=== PATIENT | female | born 1985 | race Caucasian/White ===

== ENCOUNTER 2017-10-30 17:45 | Emergency (ER) | payer SELFPAY ==
--- NOTE | 2017-10-30 17:57 | PDOC ---
Rapid Medical Evaluation Time Seen by Provider: 10/30/17 17:54 Medical Evaluation: Allergies Allergy/AdvReac Type Severity Reaction Status Date / Time morphine Allergy Verified 10/30/17 17:54 10/30/17 17:55 The patient presents with a chief complaint of: [Generalized abdominal pain, vomiting, H/O PCOS. Currently has menses. ] I have performed a brief in-person evaluation of this patient. Pertinent physical exam findings: vss, [Generalized abdominal pain, Lungs clear , RRR. ] I have ordered the following: [CBC, CMP, lipase, UA, UCG, UC] The patient will proceed to the ED for further evaluation. Discharge Disposition - Diagnosis Abdominal pain - Referrals - Patient Instructions - Post Discharge Activity
[2017-10-30 17:58] VITALS: BP 125/99; PULSE 107; TEMP 98.9; BMI 36.0
[2017-10-30] MEDS ORDERED: PANTOPRAZOLE SODIUM 40 MG VIAL IVPUSH ONE (19:25)
[2017-10-30] MEDS ORDERED: SODIUM CHLORIDE 1,000 ML IV STA (19:25)
--- NOTE | 2017-10-30 19:25 | PDOC ---
History of Present Illness - General History Source: Patient - History of Present Illness Initial Comments: 10/30/17 20:02 The patient is a 32 year old female, with a significant past medical history of peptic ulcers, who presents to the emergency department with severe abdominal pain today with associated nausea. The patient reports her pain as diffuse, however, reports her epigastric region as the epicenter of pain. She reports the pain radiates through to the center of her middle back. She also reports nausea, but denies vomiting. She reports a prior allergy of morphine and states only dilaudid works. She also states this feels just like my peptic flare up . She reports the last flare up was a while ago. She denies chest pain, shortness of breath, headache and dizziness. She denies fever, chills, vomit, diarrhea and constipation. She denies dysuria, frequency, urgency and hematuria. Allergies: morphine (hives) Past surgical history: hiatal hernia repair, tubal ligation, x 2, cholecystectomy, endoscopy (2010) Social history: smoking cessation 5 years ago. No ETOH use. PCP: none <Layne Cruz - Last Filed: 10/30/17 20:02> <Kerry White - Last Filed: 10/31/17 00:34> - General Chief Complaint: Pain, Acute Stated Complaint: PAIN Time Seen by Provider: 10/30/17 17:54 Past History <Layne Cruz - Last Filed: 10/30/17 20:02> - Past Medical History Asthma: Yes COPD: No GI Disorders: Yes (peptic ulcer) Other medical history: POCOS - Surgical History Abdominal Surgery: Yes (HITAL HERNIA, T.LIGATION) - Suicide/Smoking/Psychosocial Hx Smoking History: Never smoked Have you smoked in the past 12 months: No Information on smoking cessation initiated: No Hx Alcohol Use: No Drug/Substance Use Hx: No Substance Use Type: None <Kerry White - Last Filed: 10/31/17 00:34> - Past Medical History Allergies/Adverse Reactions: Allergies Allergy/AdvReac Type Severity Reaction Status Date / Time ketorolac [From Toradol] Allergy Mild ERYTHEMA, Verified 10/30/17 20:17 ITCHING morphine Allergy Verified 10/30/17 17:54 Review of Systems - Review of Systems Able to Perform ROS?: Yes Comments:: 10/30/17 20:04 CONSTITUTIONAL: Absent: fever, chills, diaphoresis, generalized weakness, malaise, loss of appetite HEENT: Absent: rhinorrhea, nasal congestion, throat pain, throat swelling, difficulty swallowing, mouth swelling, ear pain, eye pain, visual Changes CARDIOVASCULAR: Absent: chest pain, syncope, palpitations, irregular heart rate, lightheadedness , peripheral edema RESPIRATORY: Absent: cough, shortness of breath, dyspnea with exertion, orthopnea, wheezing, stridor, hemoptysis GASTROINTESTINAL: (+) epigastric abdominal pain radiating to back, nausea, Absent: abdominal distension, vomiting, diarrhea, constipation, melena, hematochezia GENITOURINARY: Absent: dysuria, frequency, urgency, hesitancy, hematuria, flank pain, genital pain MUSCULOSKELETAL: Absent: myalgia, arthralgia, joint swelling SKIN: Absent: rash, itching, pallor HEMATOLOGIC/IMMUNOLOGIC: Absent: easy bleeding, easy bruising, lymphadenopathy, frequent infections ENDOCRINE: Absent: unexplained weight gain, unexplained weight loss, heat intolerance, cold intolerance NEUROLOGIC: Absent: headache, focal weakness or paresthesias, dizziness, unsteady gait, seizure, mental status changes, bladder or bowel incontinence PSYCHIATRIC: Absent: anxiety, depression, suicidal or homicidal ideation, hallucinations. <Layne Cruz - Last Filed: 10/30/17 20:02> *Physical Exam - Vital Signs Last Vital Signs Temp Pulse Resp BP Pulse Ox 98.9 F 107 H 18 125/99 100 10/30/17 17:55 10/30/17 17:55 10/30/17 17:55 10/30/17 17:55 10/30/17 17:55 - Physical Exam Comments: 10/30/17 20:05 GENERAL: (+) Crying. Well developed, well nourished. Awake and alert. No acute distress. HEENT: Normocephalic, atraumatic. PERRLA, EOMI. No conjunctival pallor. Sclera are non- icteric. Moist mucous membranes. Oropharynx is clear. NECK: Supple. Full ROM. No JVD. Carotid pulses 2+ and symmetric, without bruits. No thyromegaly. No lymphadenopathy. CARDIOVASCULAR: Regular rate and rhythm. No murmurs, rubs, or gallops. Distal pulses are 2+ and symmetric. PULMONARY: No evidence of respiratory distress. Lungs clear to auscultation bilaterally. No wheezing, rales or rhonchi. ABDOMINAL: (+) epigastric tenderness to palpation. Soft.Non-distended. No rebound or guarding. No organomegaly. Normoactive bowel sounds. MUSCULOSKELETAL Normal range of motion at all joints. No bony deformities or tenderness. No CVA tenderness. EXTREMITIES: No cyanosis. No clubbing. No edema. No calf tenderness. SKIN: Warm and dry. Normal capillary refill. No rashes. No jaundice. NEUROLOGICAL: Alert, awake, appropriate. Cranial nerves 2-12 intact. Normoreflexic in the upper and lower extremities. Normal speech. Toes are down-going bilaterally. Gait is normal without ataxia. PSYCHIATRIC: Cooperative. Good eye contact. Appropriate mood and affect. <Layne Cruz - Last Filed: 10/30/17 20:02> - Vital Signs Last Vital Signs Temp Pulse Resp BP Pulse Ox 98.9 F 107 H 18 125/99 100 10/30/17 17:55 10/30/17 17:55 10/30/17 17:55 10/30/17 17:55 10/30/17 17:55 <Kerry White - Last Filed: 10/31/17 00:34> ED Treatment Course - LABORATORY CBC & Chemistry Diagram: 10/30/17 19:40 10/30/17 19:40 - ADDITIONAL ORDERS Additional order review: 10/30/17 19:40 RBC 3.53 L MCV 77.4 L MCHC 31.4 L RDW 16.5 H MPV 8.5 Neutrophils % 54.9 Lymphocytes % 31.4 Monocytes % 11.7 H Eosinophils % 1.2 Basophils % 0.8 - Medications Given in the ED: ED Medications Discontinued Medications Generic Name Dose Route Start Last Admin Trade Name Freq PRN Reason Stop Dose Admin Diphenhydramine HCl 25 mg 10/30/17 19:53 10/30/17 19:56 Benadryl Injection - IVPUSH 10/30/17 19:54 25 mg ONCE ONE Administration Ketorolac Tromethamine 30 mg 10/30/17 19:39 10/30/17 19:46 Toradol Injection - IVPUSH 10/30/17 19:40 30 mg ONCE ONE Administration Methylprednisolone Sodium Succinate 125 mg 10/30/17 19:53 10/30/17 19:56 Solu-Medrol - IVPUSH 10/30/17 19:54 125 mg ONCE ONE Administration Pantoprazole Sodium 40 mg 10/30/17 19:25 10/30/17 19:37 Protonix Iv IVPUSH 10/30/17 19:26 40 mg ONCE ONE Administration <Layne Cruz - Last Filed: 10/30/17 20:02> - LABORATORY CBC & Chemistry Diagram: 10/30/17 19:40 10/30/17 20:40 <Kerry White - Last Filed: 10/31/17 00:34> Medical Decision Making - Medical Decision Making 10/31/17 00:31 32-year-old female presented with diffuse abdominal pain, stating that it was mid abdominal radiating to her back. She stated that she had a history of cholecystectomy, C-sections Patient states she had an allergy to morphine and was given Toradol and did develop some hives to the Toradol. She stated that normally she gets Dilaudid for her pain. On exam, there is no focality to her abdominal pain She had a negative test She was taken to radiology for CAT scan and then it became apparent that she had eloped without getting the imaging study done. There is concern because she left with the Hep-Lock in her arm and the address she gave us is in [place] -charge nurse notified <Kerry White - Last Filed: 10/31/17 00:34> *DC/Admit/Observation/Transfer - Attestations Scribe Attestion: 10/30/17 20:05 Documentation prepared by Layne Cruz, acting as medical housekeeper for Kerry White MD <Layne Cruz - Last Filed: 10/30/17 20:02> <Kerry White - Last Filed: 10/31/17 00:34> Diagnosis at time of Disposition: Abdominal pain - Discharge Dispostion Disposition: ELOPED
[2017-10-30] MEDS ORDERED: MAG HYDROX/AL HYDROX/SIMETH 30 ML UNIT-DOSE CUP PO ONE (19:27)
[2017-10-30] MEDS ORDERED: PANTOPRAZOLE SODIUM 40 MG VIAL ONE (19:32)
[2017-10-30] MEDS ORDERED: KETOROLAC TROMETHAMINE 30 MG/1 ML VIAL IVPUSH ONE (19:39)
[2017-10-30] MEDS ORDERED: KETOROLAC TROMETHAMINE 30 MG/1 ML VIAL ONE (19:45)
[2017-10-30 19:49] LABS: BASO % 0.8 % (0-2.0); EOS % 1.2 % (0-4.5); HEMATOCRIT 27.3 % (32.4-45.2); HEMOGLOBIN 8.6 GM/dL (10.7-15.3); LYMPH % 31.4 % (8-40); MCH 24.3 pg (25.7-33.7); MCHC 31.4 g/dl (32.0-36.0); MEAN CELL VOLUME 77.4 fl (80-96); MEAN PLT VOLUME 8.5 fl (7.5-11.1); MONO % 11.7 % (3.8-10.2); NEUT % 54.9 % (42.8-82.8); PLATELET COUNT 362 K/MM3 (134-434); RBC 3.53 M/mm3 (3.60-5.2); RDW 16.5 % (11.6-15.6); WHITE BLOOD COUNT 5.4 K/mm3 (4.0-10.0)
[2017-10-30] MEDS ORDERED: methylPREDNISolone NA SUCC 125 MG/2 ML VIAL ONE (19:52)
[2017-10-30] MEDS ORDERED: methylPREDNISolone NA SUCC 125 MG/2 ML VIAL IVPUSH ONE (19:53)
[2017-10-30] MEDS ORDERED: HYDROmorphone HCL CARPU-JECT 2 MG/1 ML DISP.SYRIN ONE (20:24)
[2017-10-30] MEDS ORDERED: ONDANSETRON 4 MG/2 ML VIAL ONE (20:24)
[2017-10-30] MEDS ORDERED: HYDROmorphone HCL CARPU-JECT 1 MG/1 ML DISP.SYRIN IVPUSH ONE (20:30)
[2017-10-30] MEDS ORDERED: ONDANSETRON 4 MG/2 ML VIAL IVPUSH ONE (20:30)
[2017-10-30 22:09] LABS: ALBUMIN 3.7 g/dl (3.4-5.0); ANION GAP 9 (8-16); BILIRUBIN,TOTAL 0.2 mg/dL (0.2-1.0); BLOOD UREA NITROGEN 11 mg/dL (7-18); CALCIUM 7.7 mg/dL (8.5-10.1); CHLORIDE 111 mmol/L (98-107); CO2 23 mmol/L (21-32); CREATININE 0.5 mg/dL (0.55-1.02); GLUCOSE,RANDOM 87 mg/dL (74-106); LIPASE 104 U/L (73-393); POTASSIUM 3.4 mmol/L (3.5-5.1); SGOT/AST 16 U/L (15-37); SGPT/ALT 19 U/L (12-78); SODIUM 143 mmol/L (136-145); TOT PROT 6.8 g/dl (6.4-8.2)
[2017-10-30 22:10] LABS: ALK PHOS 53 U/L (45-117)
== END 2017-10-31 00:02 | disposition left against medical advice (07) ==
LOC: JER 17:45
PROC: 3E033NZ Introduction of Analgesics, Hypnotics, Sedatives into Peripheral Vein, Percutaneous Approach (ICD-10-PCS; principal; 2017-10-30)
PROC: 3E0333Z Introduction of Anti-inflammatory into Peripheral Vein, Percutaneous Approach (ICD-10-PCS; 2017-10-30)
PROC: 3E033GC Introduction of Other Therapeutic Substance into Peripheral Vein, Percutaneous Approach (ICD-10-PCS; 2017-10-30)
PROC: 3E033GC Introduction of Other Therapeutic Substance into Peripheral Vein, Percutaneous Approach (ICD-10-PCS; 2017-10-30)
PROC: 3E033GC Introduction of Other Therapeutic Substance into Peripheral Vein, Percutaneous Approach (ICD-10-PCS; 2017-10-30)
DX: R10.13 Epigastric pain (principal); E28.2 Polycystic ovarian syndrome; Z87.11 Personal history of peptic ulcer disease; Z88.6 Allergy status to analgesic agent
CPT/HCPCS: 36415; 80053; 83690; 84703; 85025; 99282-25